=== PATIENT | male | born 1960 | race Caucasian/White ===

== ENCOUNTER 2020-10-14 23:52 | Emergency (ER) | payer BC ==
--- NOTE | 2020-10-15 00:17 | EDM.PDOC ---
ED HPI GENERAL MEDICAL PROBLEM - General Chief Complaint: Cardiovascular Problem Stated Complaint: HAD STINTS PUTS ON 10/11 HEART FEELS OFF Time Seen by Provider: 10/15/20 00:15 Source of Information: Reports: Patient History Limitations: Reports: No Limitations - History of Present Illness INITIAL COMMENTS - FREE TEXT/NARRATIVE: This 60 yo male patient reports to the ED due to feeling like his heartbeats are "off". The patient reports he did have stents placed on Saturday by Dr. Griggs at [facility] in [place] (2 stents placed, 1 of which replaced previous stents). Today, the patient reports he was feeling pretty good, mowed the lawn, had a couple of beers and began to have symptoms tonight before going to bed. The patient denies any history of atrial fibrillation. The patient reports this is the 3rd time that he has had stents placed. The patient reports they noticed the blockage during a stress test causing him to have follow-up leading to stent placement. Onset: Today Duration: Hour(s): Location: Reports: Chest ("Discomfort") Quality: Reports: Other Severity: Moderate Improves with: Reports: None Worsens with: Reports: None Context: Reports: Other Associated Symptoms: Reports: Chest Pain - Related Data Allergies Allergy/AdvReac Type Severity Reaction Status Date / Time No Known Allergies Allergy Verified 10/15/20 00:13 Home Meds: Home Meds Aspirin [Aspirin EC] 81 mg PO DAILY 10/15/20 [History] Clopidogrel Bisulfate [Plavix] 75 mg PO DAILY 10/15/20 [History] Metoprolol Succinate 50 mg PO BID 10/15/20 [History] Rosuvastatin [Crestor] 10 mg PO DAILY 10/15/20 [History] Tamsulosin [Flomax] 0.4 mg PO DAILY 10/15/20 [History] Valsartan/Hydrochlorothiazide [Diovan Hct 160-12.5 mg Tab] 1 each PO DAILY 10/15/20 [History] ED ROS GENERAL - Review of Systems Review Of Systems: Comprehensive ROS is negative, except as noted in HPI. ED EXAM, GENERAL - Physical Exam Exam: See Below Exam Limited By: No Limitations General Appearance: Alert, WD/WN, Mild Distress Eye Exam: Bilateral Eye: EOMI, Normal Inspection, PERRL Ears: Normal External Exam, Normal Canal, Hearing Grossly Normal, Normal TMs Nose: Normal Inspection, Normal Mucosa, No Blood Throat/Mouth: Normal Inspection, Normal Lips, Normal Teeth, Normal Gums, Normal Oropharynx, Normal Voice, No Airway Compromise Head: Atraumatic, Normocephalic Neck: Normal Inspection, Supple, Non-Tender, Full Range of Motion Respiratory/Chest: No Respiratory Distress, Lungs Clear, Normal Breath Sounds, No Accessory Muscle Use, Chest Non-Tender Cardiovascular: No Edema, No JVD, No Murmur, No Rub, Tachycardia, Irregularly Irregular GI/Abdominal: Normal Bowel Sounds, Soft, Non-Tender, No Organomegaly, No Distention, No Abnormal Bruit, No Mass (Male) Exam: Deferred Rectal (Males) Exam: Deferred Back Exam: Normal Inspection, Full Range of Motion, NT Extremities: Normal Inspection, Normal Range of Motion, Non-Tender, Normal Capillary Refill, No Pedal Edema Neurological: Alert, Oriented, CN II-XII Intact, Normal Cognition, Normal Gait, Normal Reflexes, No Motor/Sensory Deficits Psychiatric: Normal Affect, Normal Mood Skin Exam: Warm, Dry, Intact, Normal Color, No Rash Lymphatic: No Adenopathy #1 Interpretation EKG Date: 10/15/20 Time: 00:04 Rhythm: A-Fib (with RVR) Rate (Beats/Min): 107 [place]: Normal P-Wave: Present (but variable) ST-T: Normal QT: Normal Comparison: NA - No Prior EKG Course - Vital Signs Last Recorded V/S: Last Vital Signs Temp 98 F 10/15/20 00:09 Pulse 112 H 10/15/20 00:09 Resp 14 10/15/20 00:09 BP 148/78 H 10/15/20 00:09 Pulse Ox 97 10/15/20 00:09 - Orders/Labs/Meds Orders: Active Orders 24 hr Category Date Time Status EKG Documentation Completion [RC] STAT Care 10/14/20 23:55 Ordered Chest 1V Frontal [CR] Urgent Exams 10/15/20 00:30 Ordered Labs: Laboratory Tests 10/15/20 10/15/20 10/15/20 Range/Units 00: 00:21 00:21 WBC 7.9 (5.0-10.0) 10^3/uL RBC 4.73 (4.6-6.2) 10^6/uL Hgb 14.9 (14.0-18.0) g/dL Hct 43.4 (40.0-54.0) % MCV 91.8 (80-100) fL MCH 31.5 (27.0-34.0) pg MCHC 34.3 (33.0-35.0) g/dL Plt Count 191 (150-450) 10^3/uL Neut % (Auto) 63.7 (42.2-75.2) % Lymph % (Auto) 26.5 (20.5-50.1) % [place] % (Auto) 8.4 H (2-8) % Eos % (Auto) 1.1 (1.0-3.0) % Baso % (Auto) 0.3 (0.0-1.0) % PT 9.6 (9.0-12.0) SEC INR 1.0 (0.9-1.2) Sodium 142 (136-145) mmol/L Potassium 4.1 (3.5-5.1) mmol/L Chloride 103 (98-107) mmol/L Carbon Dioxide 29 (21-32) mmol/L Anion Gap 14.1 H (7-13) mEq/L BUN 22 H (7-18) mg/dL Creatinine 1.29 (0.70-1.30) mg/dL Est Cr Clr Drug Dosing 66.48 mL/min Estimated GFR (MDRD) 57 BUN/Creatinine Ratio 17.1 (No establ ref range) Glucose 111 H (70-99) mg/dL Calcium 9.0 (8.5-10.1) mg/dL Total Bilirubin 0.3 (0.2-1.0) mg/dL AST 33 (15-37) U/L ALT 56 (16-63) U/L Alkaline Phosphatase 55 (46-116) U/L Troponin I High Sens 58 (<=76) pg/mL Total Protein 7.4 (6.4-8.2) g/dL Albumin 4.0 (3.4-5.0) g/dL Globulin 3.4 Albumin/Globulin Ratio 1.2 Meds: Medications Discontinued Medications Generic Name Dose Route Start Last Admin Trade Name Freq PRN Reason Stop Dose Admin Diltiazem HCl 20 mg 10/15/20 00:19 10/15/20 00:30 Diltiazem 25 Mg/5 Ml Sdv IVPUSH 10/15/20 00:20 20 mg ONETIME ONE Administration - Re-Assessments/Exams Free Text/Narrative Re-Assessment/Exam: 10/15/20 00:35 The patient received 12 mg of IV Cardizem when his heart rate went down to the 60's without converting to a normal sinus rhythm. The patient's heart rate increased to >100 less than 5 minutes after stopping the slow IV push. 10/15/20 01:03 The patient was advised of the initial lab results. The patient was advised that we will need to repeat the Troponin level 2 hours after the initial draw to be able to determine his next course of treatment. 10/15/20 03:18 A consult call was placed to [facility]. Spoke with Dr. Castillo regarding the patient's history, examination, lab results and EKG results. Dr. Castillo advised to start the patient on Eliquis daily, increase the patient's Metoprolol dose and follow-up with cardiology in [place] early next week. After speaking with Dr. Castillo, I spoke with the patient and his when the patient's EKG demonstrated that the patient had converted into a normal sinus rhythm. The patient was given an oral dose of Eliquis while in the ED, but his Metoprolol was not increased due to the patient's current heart rate being in the upper 50's. Departure - Departure Time of Disposition: 03:22 Disposition: Home, Self-Care 01 Condition: Fair Clinical Impression: New onset a-fib Instructions: Atrial Fibrillation, [id number] Forms: ED Department Discharge Care Plan Goals: Discussed the patient's history, examination, EKG, treatments and lab results with the patient, his and Dr. Castillo (Campaign Director with [facility] in [place]). The patient was given an oral dose of Eliquis (per conversation with Dr. Castillo). The patient was encouraged to follow-up with Cardiology in [facility] early next week. The patient was discharged with a script for Eliquis (5 mg) #30 to take 1 by mouth daily. The patient will follow-up with Cardiology on Saturday. If the patient has any additional symptoms or concerns, the patient should either return to the emergency department or visit his primary care facility. Sepsis Event Note (ED) - Focused Exam Vital Signs: Vital Signs Temp Pulse Resp BP Pulse Ox 10/15/20 00:09 98 F 112 H 14 148/78 H 97 - My Orders Last 24 Hours: My Active Orders 10/14/20 23:55 EKG Documentation Completion [RC] STAT 10/15/20 00:30 Chest 1V Frontal [CR] Urgent - Assessment/Plan Last 24 Hours: My Active Orders 10/14/20 23:55 EKG Documentation Completion [RC] STAT 10/15/20 00:30 Chest 1V Frontal [CR] Urgent
[2020-10-15] MEDS ORDERED: Diltiazem 25 MG/5 ML SDV IVPUSH ONE (00:19)
[2020-10-15 00:48] LABS: ANION GAP 14.1 mEq/L (7-13)
--- NOTE | 2020-10-15 01:56 | CR ---
PROCEDURE INFORMATION: Exam: XR Chest Exam date and time: 10/15/2020 12:35 AM Age: 60 years old Clinical indication: Other: Chest pain TECHNIQUE: Imaging protocol: XR of the chest. Views: 1 view. COMPARISON: No relevant prior studies available. FINDINGS: Lungs: Unremarkable. No consolidation. Pleural spaces: Unremarkable. No pleural effusion. No pneumothorax. Heart/Mediastinum: Unremarkable. No cardiomegaly. Bones/joints: Unremarkable. IMPRESSION: No acute findings.
[2020-10-15] MEDS ORDERED: Apixaban 5 MG Tab PO ONE (03:07)
== END 2020-10-15 03:36 | disposition home or self-care (01) ==
LOC: DL.ED 23:52
DX: I48.91 Unspecified atrial fibrillation (principal); Z95.5 Presence of coronary angioplasty implant and graft; Z79.82 Long term (current) use of aspirin; Z79.02 Long term (current) use of antithrombotics/antiplatelets; Z79.899 Other long term (current) drug therapy
CPT/HCPCS: 36415; 71045; 80053; 84484; 85025; 85610; 93005; 93010; 96374; 99284; 99285-25; A9270-GY; J3490